=== PATIENT | female | born 1995 | race Native Hawaiian/Other Pacific Islander ===

== ENCOUNTER 2016-08-06 20:00 | Emergency (ER) | payer OTHER ==
[~2016-08-06 20:00] MED LIST: CIPR500T4 PO
[2016-08-06 20:06] VITALS: BP 122/79; PULSE 80; RESP 20; TEMP 98.2; O2SAT 99
[2016-08-06] MEDS ORDERED: BIRTH CONTROL (20:20)
[2016-08-06] MEDS ORDERED: LIDOCAINE HCL 1% 50 ML VIAL INFIL ONE (20:45)
[2016-08-06] MEDS ORDERED: TETANUS/DIPHTHERIA TOXOID ADULT 0.5 ML VIAL IM ONE (20:45)
--- NOTE | 2016-08-06 21:06 | PD ---
HPI Chief Complaint: Injury Time Seen by Provider: 21:04 Travel History International Travel<30 days: No Contact w/Intl Traveler<30days: No Traveled to known affect area: No History of Present Illness HPI 20-year-old left-hand dominant female presents to emergency department with a laceration to her right thumb from a Saran wrap corrugations. The patient sustained a laceration to the volar proximal thumb. Pain is [id number]. She denies any sensory loss but states that she has pain with movement of her finger. Symptoms are moderate. Unsure of her last immunization. PFSH Past Medical History Medical History: Denies Significant Hx Hx Anticoagulant Therapy: No Cardiovascular Problems: No Chemotherapy: No Cerebrovascular Accident: No Diabetes: No Respiratory: No Tetanus Vaccination: > 5 Years ?: Not LMP: "BEGINNING OF THIS MONTH" Past Surgical History Surgical History: No Previous Surgery Hysterectomy: No Social History Alcohol Use: No Tobacco Use: No Substance Use: No Allergies-Medications (Allergen,Severity, Reaction): Coded Allergies: No Known Allergies (Unverified , 08/06/16) Reported Meds & Prescriptions Reported Meds & Active Scripts Active Reported [ Control] Review of Systems Except as stated in HPI: all other systems reviewed are Neg Physical Exam Narrative GENERAL: This is a well-nourished, well-developed patient, in no apparent distress. SKIN: No rashes, ecchymoses or lesions. Warm and dry. HEAD: Atraumatic. Normocephalic. EYES: PERRL, EOMI, no discharge or injection. No scleral icterus. EARS: Clear NOSE: Nasal turbinates appear normal. THROAT: Mucosa pink and moist. Airway patent. NECK: Trachea midline. supple, moves head freely. LUNGS: Clear to auscultation. CV: Regular in rhythm. ABDOMEN: Soft nontender. EXT: No clubbing cyanosis or edema. Patient has a 1.5 cm laceration to the volar mid pad of the proximal right thumb. Neurovascularly intact. Good Refill. Data Data Last Documented VS Vital Signs Date Time Temp Pulse Resp B/P Pulse Ox O2 Delivery O2 Flow Rate FiO2 08/06/16 20:06 98.2 80 20 122/79 99 Room Air Orders Tetanus/Diphtheria Tox Adult (Tetanus/Di (08/06/16 20:45) Lidocaine 1% Inj (50 Ml) (Xylocaine 1% I (08/06/16 20:45) MDM Medical Decision Making Medical Screen Exam Complete: Yes Emergency Medical Condition: Yes Medical Record Reviewed: Yes Differential Diagnosis MDM: High Differential diagnoses: Fracture, sprain, strain, dislocation, contusion, neurovascular injury Narrative Course Patient's tetanus status updated. Patient's laceration is closed sutures. Procedures Procedure Narrative LACERATION LOCATION: Right volar proximal thumb LENGTH: 1.5 cm NUMBER OF STITCHES/KELLY: 4 REPAIR: The area of the laceration was prepped with Betadine and sterilely draped. The laceration was infiltrated with 1% lidocaine digital block. The wound was copiously irrigated and explored without evidence of foreign body, tendon injury or neurovascular injury. A tourniquet was used to ensure a bloodless field. The wound is probed using Q-tips and forceps to ensure the tendon to be intact which it was. No deep injury. The wound was closed using 5 -0 proline. This was a simple single layer repair. A sterile dressing was applied. The patient was advised to keep the dressing clean and dry. Patient tolerated the procedure well. Diagnosis Primary Impression: Laceration of right thumb Patient Instructions: General Instructions Additional Instructions: Rest. Elevation. Keep clean and dry. Daily wound care with soap, water, Neosporin. Tylenol and Advil for pain. Sutures out in 12-14 days. Return to the ER for any problems. Med/Other Pt SpecificInfo: Wound Care Disposition: DISCHARGE HOME Condition: Stable Judson Gomez Aug 06, 2016 21:05
== END 2016-08-06 22:17 | disposition home or self-care (01) ==
LOC: NEPB 20:00
DX: S61.011A Laceration without foreign body of right thumb without damage to nail, initial encounter (principal); W26.8XXA Contact with other sharp object(s), not elsewhere classified, initial encounter; Z23 Encounter for immunization
CPT/HCPCS: 12001; 90471; 90714